=== PATIENT | female | born 1970 | race African-American/Black ===

== ENCOUNTER 2019-11-17 00:13 | Emergency (ER) | payer MEDICAID ==
[~2019-11-17] VITALS: Ht 172.7 cm; Wt 68.0 kg
[2019-11-17 02:43] VITALS: BP 149/91
== END 2019-11-17 03:02 | disposition home or self-care (01) ==
LOC: ER 00:19
DX: S96.911A Strain of unspecified muscle and tendon at ankle and foot level, right foot, initial encounter (principal); M72.2 Plantar fascial fibromatosis; Z90.710 Acquired absence of both cervix and uterus; X50.9XXA Other and unspecified overexertion or strenuous movements or postures, initial encounter; Y93.01 Activity, walking, marching and hiking; Y92.89 Other specified places as the place of occurrence of the external cause; Y99.8 Other external cause status
CPT/HCPCS: 29515; 73610; 73630

== ENCOUNTER 2020-04-12 10:20 | Emergency (ER) | payer MEDICAID ==
[~2020-04-12] VITALS: Ht 172.7 cm; Wt 70.8 kg
[2020-04-12] MEDS ORDERED: ACETAMINOPHEN/CODEINE#3 (300/30mg) TAB PO ONE (11:15)
[2020-04-12 11:45] VITALS: BP 142/100
== END 2020-04-12 12:15 | disposition home or self-care (01) ==
LOC: ER 10:20
DX: S92.512A Displaced fracture of proximal phalanx of left lesser toe(s), initial encounter for closed fracture (principal); Z90.710 Acquired absence of both cervix and uterus; Z90.89 Acquired absence of other organs; W20.8XXA Other cause of strike by thrown, projected or falling object, initial encounter; Y93.89 Activity, other specified; Y92.89 Other specified places as the place of occurrence of the external cause; Y99.8 Other external cause status
CPT/HCPCS: 29515; 73630

== ENCOUNTER 2022-04-15 06:30 | Emergency (ER) | payer MEDICAID ==
[~2022-04-15] VITALS: Ht 172.7 cm; Wt 70.8 kg
[2022-04-15 07:27] VITALS: BP 168/100
== END 2022-04-15 07:48 | disposition home or self-care (01) ==
LOC: ER 06:30
DX: S63.612A Unspecified sprain of right middle finger, initial encounter (principal); I10 Essential (primary) hypertension; Z88.2 Allergy status to sulfonamides; Z90.710 Acquired absence of both cervix and uterus; X50.1XXA Overexertion from prolonged static or awkward postures, initial encounter; Y93.89 Activity, other specified; Y92.89 Other specified places as the place of occurrence of the external cause; Y99.8 Other external cause status
CPT/HCPCS: 29130; 73140

== ENCOUNTER 2023-03-06 20:34 | Emergency (ER) | payer MEDICAID, OTHER ==
[~2023-03-06] VITALS: Ht 172.7 cm; Wt 76.5 kg
[2023-03-07] MEDS ORDERED: IBUP800T27 PO (00:07)
[2023-03-07 00:10] VITALS: BP 132/82
== END 2023-03-07 00:28 | disposition home or self-care (01) ==
LOC: ER 20:34
DX: S63.501A Unspecified sprain of right wrist, initial encounter (principal); S90.01XA Contusion of right ankle, initial encounter; I10 Essential (primary) hypertension; Z88.2 Allergy status to sulfonamides; Z90.710 Acquired absence of both cervix and uterus; Z90.89 Acquired absence of other organs; V49.9XXA Car occupant (driver) (passenger) injured in unspecified traffic accident, initial encounter; Y93.89 Activity, other specified; Y92.488 Other paved roadways as the place of occurrence of the external cause; Y99.8 Other external cause status
CPT/HCPCS: 73100; 73600

== ENCOUNTER 2023-03-17 00:33 | Inpatient (IN) | payer MEDICAID, OTHER ==
[~2023-03-17] VITALS: Ht 172.7 cm; Wt 77.5 kg
[~2023-03-17 00:33] MED LIST: IBUP800T27 PO
[2023-03-17 01:07] LABS: Urine Bacteria FEW /hpf (None Seen); Urine Blood Negative /uL (Negative); Urine Specific Gravity 1.001 (1.001-1.035); Urine WBC 4 /hpf (0 - 5)
[2023-03-17 01:32] LABS: Basophils # (auto) 0.1 10 ^3/uL (0-0.2); Eosinophils # (auto) 0.4 10 ^3/uL (0-0.8); Hematocrit 49.1 % (36.0-46.0); Hemoglobin 16.7 g/dL (12.2-16.2); Lymphocytes % (auto) 28.2 % (10.0-50.0); Mean Corpuscular Hemoglobin 29.5 pg (28.0-32.0); Mean Corpuscular Hgb Conc. 34.1 g/dL (32.0-36.0); Mean Corpuscular Volume 86.7 fL (80.0-100.0); Monocytes # (auto) 0.4 10 ^3/uL (0-1.3); Monocytes % (auto) 6.2 % (0.0-12.0); Neutrophils # (auto) 4.1 10 ^3/uL (1.6-8.6); Neutrophils % (auto) 58.6 % (37.0-80.0); Nucleated Red Blood Cells % 0.1 %; Red Blood Cells 5.66 10^6/uL (4.0-5.20); Red Cell Distribution Width 13.2 % (11.8-14.3)
[2023-03-17 01:56] LABS: Albumin 3.8 g/dL (3.4-5.0); BUN/Creatinine Ratio 11.8 (10.0-20.0); Calcium 9.3 mg/dL (8.5-10.1); Potassium 3.6 mmol/L (3.5-5.1)
[2023-03-17 01:59] LABS: Bilirubin, Total 0.3 mg/dL (0.2-1.0); Total Protein 8.1 g/dL (6.4-8.2)
[2023-03-17] MEDS ORDERED: ASPirin 81 mg TAB PO ONE (03:00)
[2023-03-17] MEDS ORDERED: cefTRIAXone 1GM/50ML D5W 50 ML IV ONE (03:45)
[2023-03-17] MEDS ORDERED: ACETAMINOPHEN 325 MG TAB PO PRN (04:00)
[2023-03-17] MEDS ORDERED: ONDANSETRON HCL 4 MG/2 ML VIAL IV PRN (04:00)
[2023-03-17] MEDS ORDERED: HYDROcodone-ACET 5/325MG TAB PO PRN (04:00)
[2023-03-17] MEDS ORDERED: DOCUSATE SOD 100 MG CAP PO PRN (04:00)
[2023-03-17] MEDS ORDERED: NITROGLYCERIN 0.4 MG SL TAB SL PRN (04:00)
[2023-03-17] MEDS ORDERED: MORPHINE SULFATE INJ 2 MG/ml SYRG IV PRN ×2 (04:00)
[2023-03-17] MEDS ORDERED: hydrALAZINE HCL 20 MG/ML VL IV SCH (06:00)
[2023-03-17] MEDS: SODIUM CHLOR 0.9% PF (SALINE LOCK) 10ML VIAL/SYR IV SCH ×3 (06:01→21:49)
[2023-03-17] MEDS ORDERED: hydrALAZINE HCL 20 MG/ML VL IV PRN (07:00)
[2023-03-17] MEDS: cefTRIAXone 1GM/50ML D5W 50 ML IV SCH (09:00)
[2023-03-17 10:38] VITALS: BP 146/93
[2023-03-17] MEDS ORDERED: LOSA-69 PO (10:53)
[2023-03-17] MEDS: ASPirin 81 mg TAB PO SCH (11:13)
[2023-03-17] MEDS: FAMOTIDINE (10MG/ML) 2ML VL IV SCH (11:14)
[2023-03-17] MEDS ORDERED: ENOXAPARIN SOD 40 MG/0.4 ML SYRINGE SC ONE (11:30)
[2023-03-17] MEDS ORDERED: LOSARTAN POTASSIUM 50 MG TAB PO ONE (11:30)
[2023-03-17 13:00] VITALS: BP 140/84
[2023-03-17 16:44] VITALS: BP_SYST 168; BP_SYST 96; BP_DIAS 44; BP_DIAS 97
[2023-03-17 22:00] VITALS: BP 132/89
[2023-03-17] MEDS ORDERED: ATORVASTATIN 20 MG TAB PO SCH (22:00)
[2023-03-18 05:00] VITALS: BP 130/94
[2023-03-18] MEDS: SODIUM CHLOR 0.9% PF (SALINE LOCK) 10ML VIAL/SYR IV SCH (05:42)
[2023-03-18 06:05] LABS: Basophils # (auto) 0 10 ^3/uL (0-0.2); Basophils % (auto) 0.5 % (0.0-2.0); Eosinophils # (auto) 0.2 10 ^3/uL (0-0.8); Eosinophils % (auto) 3.8 % (0.0-7.0); Hemoglobin 15.1 g/dL (12.2-16.2); Lymphocytes # (auto) 1.7 10 ^3/uL (0.4-5.4); Lymphocytes % (auto) 27.5 % (10.0-50.0); Mean Corpuscular Hemoglobin 29.9 pg (28.0-32.0); Mean Corpuscular Hgb Conc. 34.4 g/dL (32.0-36.0); Mean Corpuscular Volume 86.8 fL (80.0-100.0); Monocytes # (auto) 0.4 10 ^3/uL (0-1.3); Monocytes % (auto) 6.3 % (0.0-12.0); Neutrophils # (auto) 3.8 10 ^3/uL (1.6-8.6); Neutrophils % (auto) 61.9 % (37.0-80.0); Nucleated Red Blood Cells % 0.2 %; Red Blood Cells 5.06 10^6/uL (4.0-5.20); Red Cell Distribution Width 13.3 % (11.8-14.3); White Blood Cell 6.1 10^3/uL (4.4-10.8)
[2023-03-18 06:15] LABS: Albumin 3.3 g/dL (3.4-5.0); Calcium 8.8 mg/dL (8.5-10.1); Potassium 3.8 mmol/L (3.5-5.1)
[2023-03-18 06:21] LABS: BUN/Creatinine Ratio 12.8 (10.0-20.0); Bilirubin, Total 0.6 mg/dL (0.2-1.0); Total Protein 6.7 g/dL (6.4-8.2)
[2023-03-18] MEDS: cefTRIAXone 1GM/50ML D5W 50 ML IV SCH (08:37)
[2023-03-18 09:00] VITALS: BP 152/89
[2023-03-18] MEDS: FAMOTIDINE (10MG/ML) 2ML VL IV SCH (09:44)
[2023-03-18] MEDS: ASPirin 81 mg TAB PO SCH (09:44)
[2023-03-18] MEDS ORDERED: LOSARTAN POTASSIUM 50 MG TAB PO SCH (10:00)
[2023-03-18] MEDS ORDERED: ENOXAPARIN SOD 40 MG/0.4 ML SYRINGE SC SCH (10:00)
[2023-03-18] MEDS ORDERED: CAR3125T OR (10:38)
[2023-03-18] MEDS ORDERED: CIPR-273 PO (10:38)
[2023-03-18 11:39] VITALS: BP 152/89
== END 2023-03-18 12:12 | disposition home or self-care (01) | DRG 207 ==
LOC: ER 00:33 → TELE 03:57 → TELE-CENTR 10:09
PROVIDERS: ADMIT Nurse Practitioner Family; ATTEND Internal Medicine Geriatric Medicine
DX: R00.2 Palpitations (principal); I21.A1 Myocardial infarction type 2; I50.32 Chronic diastolic (congestive) heart failure; I11.0 Hypertensive heart disease with heart failure; F41.9 Anxiety disorder, unspecified; N39.0 Urinary tract infection, site not specified; I49.3 Ventricular premature depolarization; I49.8 Other specified cardiac arrhythmias; Z79.899 Other long term (current) drug therapy; R00.0 Tachycardia, unspecified; Z82.49 Family history of ischemic heart disease and other diseases of the circulatory system; Z88.2 Allergy status to sulfonamides; Z90.710 Acquired absence of both cervix and uterus; Z88.6 Allergy status to analgesic agent
CPT/HCPCS: 36415; 71046; 80053; 81001; 83880; 84484; 85025; 87086; 93005; 93306; 96365; G0378; J0696; J3490

== ENCOUNTER 2025-05-16 07:02 | Emergency (ER) | payer MEDICAID, OTHER ==
[~2025-05-16] VITALS: Ht 172.7 cm; Wt 78.6 kg
[~2025-05-16 07:02] MED LIST changes: +CARV-214 OR; +CIPR-273 PO; +IBUP-1456 PO; -IBUP800T27 PO; +LOSA-534 PO
[2025-05-16 07:19] VITALS: BP 166/97; PULSE 72; RESP 16; TEMP 98.3; O2SAT 100
--- NOTE | 2025-05-16 07:22 | ED.PDOC ---
Back pain HPI HPI Comments A 54 YEAR-OLD FEMALE PRESENTS TO THE ED WITH A CHIEF COMPLAINT LOWER BACK PAIN FOR X4 DAYS. PATIENT REPORTS THAT SHE WORKS OUT FREQUENTLY, WITH MOVEMENT AND ACTIVITY INCREASING PAIN. PATIENT HAS NO FURTHER COMPLAINTS AT THIS TIME AND OTHERWISE DENIES DYSURIA, HEMATURIA, BLOODY STOOL, FEVER, CHILLS, OR ACHES. PATIENT IS ALERT, ORIENTED X 4, AND HAS STEADY GAIT. Chief Complaint: LOWER BACK PAIN Time Seen by MD: 07:21 Primary Care Provider: SANDRA Wilcox Reviewed Notes: Nurses Notes, Medications, Allergies Allergies: Coded Allergies: Sulfa Antibiotics (Verified Allergy, Severe, HIVES, 04/12/20) Uncoded Allergies: SULFA (Allergy, Severe, RASH, 08/06/16) Home Meds Active Scripts Carvedilol (COREG) 3.125 Mg Tab, 3.125 MG OR BID for 30 Days, #60 TAB Prov:RICHARD RAMIREZ MD 03/18/23 Ciprofloxacin Hcl (Cipro) 250 Mg Tab, 250 MG PO BID for 7 Days, #14 TAB Prov:RICHARD RAMIREZ MD 03/18/23 Ibuprofen (Ibuprofen) 800 Mg Tab, 1 TAB PO TID PRN, #30 TAB 0 Refills Prov:NAA MELENDEZ 03/07/23 Reported Medications Losartan Potassium (Losartan Potassium) 50 Mg Tab, 1 TAB PO DAILY 03/17/23 Information Source: Patient Mode of Arrival: Ambulatory Timing: Days (4) Duration: Since onset Location of Back pain: (R) Lower back, (L) Lower back Severity: Moderate Prehospital treatment: None Onset: Spontaneous, Other (GYM ) History of: Other Modifying Factors: Movement, Walking; No Twisting Associated signs and symptoms: Other (LOWER BACK PAIN ) Past Medical History PAST MEDICAL HISTORY: Anemia, Anxiety, HTN Surgical History: Hysterectomy, Tonsillectomy 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 History Family History Family History: Unknown Social History Smoker: Non-Smoker Alcohol: Occasionally Drugs: Denies Drug Use Lives In: Home Constitutional: denies: chills, diaphoresis, fatigue, fever, malaise, sweats, weakness, others EENTM: denies: blurred vision, double vision, ear bleeding, ear discharge, ear drainage, ear pain, ear ringing, eye pain, eye redness, hearing loss, mouth pain, mouth swelling, nasal discharge, nose bleeding, nose congestion, nose pain, photophobia, tearing, throat pain, throat swelling, voice changes, others Respiratory: denies: cough, hemoptysis, orthopnea, SOB at rest, shortness of breath, SOB with excertion, stridor, wheezing, others Cardiovascular: denies: chest pain, dizzy spells, diaphoresis, Dyspnea on exertion, edema, irregular heart beat, left arm pain, lightheadedness, palpitations, PND, syncope, others Gastrointestinal: denies: abdomen distended, abdominal pain, blood streaked bowels, constipated, diarrhea, dysphagia, difficulty swallowing, hematemesis, melena, nausea, poor appetite, poor fluid intake, rectal bleeding, rectal pain, vomiting, others Genitourinary: denies: abnormal vagina bleeding, burning, dyspareunia, dysuria, flank pain, frequency, hematuria, incontinence, pain, , vagina discharge, urgency, others Neurological: denies: dizziness, fainting, headache, left sided numbness, left sided weakness, numbness, paresthesia, pre-existing deficit, right sided numbness, right sided weakness, seizure, speech problems, tingling, tremors, weakness, others Musculoskeletal: reports: back pain (LOWER ), muscle pain; denies: gout, joint pain, joint swelling, muscle stiffness, neck pain, others Integumetry: denies: bruises, change in color, change in hair/nails, dryness, laceration, lesions, lumps, rash, wounds, others Allergic/Immunocompromised: denies: Difficulty Healing, Frequent Infections, Hives, Itching, others Hematologic/Lymphatic: denies: anemia, blood clots, easy bleeding, easy bruising, swollen glands, others Endocrine: denies: excessive hunger, excessive sweating, excessive thirst, excessive urination, flushing, intolerance to cold, intolerance to heat, unexplained weight gain, unexplained weight loss, others Psychiatric: denies: anxiety, bipolar disorder, depression, hopeless, panic disorder, schizophrenia, sleepless, suicidal, others All Other Systems: Reviewed and Negative Physical Exam General Appearance: No Apparent Distress, Normal HEENT: Normal ENT Inspection, PERRL/EOMI, Pharynx Normal, TMs Normal Neck: Full Range of Motion, Non-Tender, Normal, Normal Inspection Respiratory: Chest Non-Tender, Lungs Clear, No Accessory Muscle Use, No Respiratory Distress, Normal Breath Sounds Cardiovascular: No Edema, No JVD, No Murmur, No Gallop, Normal Peripheral Pulses, Regular Rate/Rhythm Breast Exam: Deferred Gastrointestinal: No Organomegaly, Non Tender, No Pulsatile Mass, Normal Bowel Sounds, Soft Genitalia: Deferred Pelvic: Deferred Rectal: Deferred Extremities: No calf tenderness, Normal capillary refill, Normal inspection, Normal range of motion, Non-tender, No pedal edema Musculoskeletal : Location: Bilateral Extremity Location: Back Apperance: Tenderness: Moderate (TENDERNESS AND MUSCLE SPASM ON LOWER BACK, NO BONY TENDERNESS, SWELLING AND DEFORMITY. ) Neurologic: Alert, process project engineer II-XII nml as Tested, No Motor Deficits, Normal Affect, Normal Mood, No Sensory Deficits Cerebellar Function: Normal Reflexes: Normal Skin: Dry, Normal Color, Warm Peripheral Pulses: 2+ carotid (R), 2+ carotid (L) Lymphatic: No Adenopathy Was a procedure done? Was a procedure done?: No Back Pain Differential Dx Differential Diagnosis: DJD, Fracture, Musculoskeletal Pain, Strain X-Ray, Labs, Meds, VS Vital Signs Date Time Temp Pulse Resp B/P (MAP) Pulse Ox O2 Delivery O2 Flow Rate FiO2 05/16/25 07:19 98.3 72 16 166/97 (120) 100 98.3 INDICATION: PAIN, NO INJURY TECHNIQUE: 2 views of the lumbar spine were obtained. COMPARISON: None FINDINGS: There are no acute fractures or subluxations. IMPRESSION: No acute fracture or subluxation. X-Ray, Labs, Meds, VS Comment EXTERNAL MEDICAL RECORDS: NONE INDEPENDENT HISTORIANS: NONE SOCIAL DETERMINANTS OF HEALTH: NONE LABS ORDERED: NONE REVIEWED AND INTERPRETED RESULTS: NONE IMAGING ORDERED: LUMBAR SPINE XRAY TREATMENTS ORDERED: TORADOL INJECTION PATIENT'S CASE AND RESULTS HAVE BEEN DISCUSSED WITH THE ED ATTENDING PHYSICIAN AND THEY AGREE WITH MY PLAN OF CARE. RX: ROBAXIN 750MG I HAVE DISCUSSED IMAGING AND LAB RESULTS WITH THE PATIENT AND HAVE INSTRUCTED THE PATIENT TO FOLLOW UP WITH THEIR PCP IN 1-2 DAYS. THE PATIENT FULLY UNDERSTANDS THEIR RESULTS AND ARE AWARE THEY NEED TO FOLLOW UP WITH THEIR PCP FOR FURTHER EVALUATION IF THEIR SYMPTOMS PERSIST. Images Reviewed?: Images reviewed and evaluated by me Time of 1ST Reevaluation: 07:55 Reevaluation 1ST: Improved Patient Education/Counseling: Diagnosis, Treatment, Need For Follow Up Family Education/Counseling: No Family Present Medical Screening: No EMC Exist At This Time SEPSIS Sepsis Screen Physician Orders Lumbar Spine 3 View (05/16/25 07:20) Vital Signs Date Time Temp Pulse Resp B/P (MAP) Pulse Ox O2 Delivery O2 Flow Rate FiO2 05/16/25 07:19 98.3 72 16 166/97 (120) 100 98.3 Departure 1 Departure Time of Disposition: 08:34 Impression: Primary Impression: Low back strain Qualified Codes: S39.012A - Strain of muscle, fascia and tendon of lower back, initial encounter Disposition: HOME / SELF CARE / HOMELESS Condition: Stable Additional Instructions: FOLLOW-UP WITH PCP IN 1 TO 2 DAYS. TAKE MEDICATIONS PRESCRIBED. RETURN TO ED FOR ANY NEW OR WORSENING SYMPTOMS. e-Prescriptions Methocarbamol (Methocarbamol) 750 Mg Tab 750 MG PO BID, #30 TAB Prov: YOON HOLLIDAY 05/16/25 Discharged With: Self Critical Care Note Critical Care Time?: No Stability Stability form required: No Heart Score Heart Score: Heart Score Response (Comments) Value History N/A 0 EKG N/A 0 Age N/A 0 Risk Factors N/A 0 Troponin N/A 0 Total 0 I personally scribed for CHITO HOLLIDAYA PA ([email or web address]) on 05/16/25 at 07:22. Electronically submitted by Keely Lemon ([employer] I personally scribed for CHITO HOLLIDAYA PA ([email or web address]) on 05/16/25 at 07:35. Electronically submitted by Keely Lemon ([employer] I personally scribed for MGDAVI PierreXIA PA ([email or web address]) on 05/16/25 at 07:36. Electronically submitted by Keely Lemon ([employer] I personally scribed for MGCHITO PierreA PA ([email or web address]) on 05/16/25 at 07:37. Electronically submitted by Keely Lemon ([employer] I personally scribed for CHITO HOLLIDAYA PA ([email or web address]) on 05/16/25 at 08:12. Electronically submitted by Keely Lemon ([employer] YOON HOLLIDAY May 16, 2025 07:22
[2025-05-16] MEDS ORDERED: KETOROLAC TROMETH 60MG/2ML VIAL IM ONE (07:30)
--- NOTE | 2025-05-16 07:53 | DVH ---
INDICATION: PAIN, NO INJURY TECHNIQUE: 2 views of the lumbar spine were obtained. COMPARISON: None FINDINGS: There are no acute fractures or subluxations. IMPRESSION: No acute fracture or subluxation.
[2025-05-16] MEDS ORDERED: METH-1182 PO (08:32)
== END 2025-05-17 08:36 | disposition home or self-care (01) ==
LOC: ER 07:02
DX: S39.012A Strain of muscle, fascia and tendon of lower back, initial encounter (principal); F10.90 Alcohol use, unspecified, uncomplicated; I10 Essential (primary) hypertension; F41.9 Anxiety disorder, unspecified; Z90.710 Acquired absence of both cervix and uterus; Z88.2 Allergy status to sulfonamides; Z86.2 Personal history of diseases of the blood and blood-forming organs and certain disorders involving the immune mechanism; Z79.899 Other long term (current) drug therapy; X58.XXXA Exposure to other specified factors, initial encounter; Y93.89 Activity, other specified; Y92.89 Other specified places as the place of occurrence of the external cause; Y99.8 Other external cause status; Y90.9 Presence of alcohol in blood, level not specified
CPT/HCPCS: 72100

== ENCOUNTER 2025-08-30 17:05 | Emergency (ER) | payer MEDICAID ==
[~2025-08-30] VITALS: Ht 175.3 cm; Wt 77.8 kg
[~2025-08-30 17:05] MED LIST changes: +METH-1182 PO
[2025-08-30 17:06] VITALS: BP 169/104; PULSE 68; RESP 15; TEMP 97; O2SAT 99
--- NOTE | 2025-08-30 19:09 | ED.PDOC ---
History of Present Illness HPI Comments 55 y/o F, with a Hx of UTI's, presents with c/c of left, lower back pain. Patient reports sudden onset of pain, tonight. She comments suspicion on having a UTI, again, and moving heavy furniture 2x weeks ago. Denies any recent injuries. Denies any weakness, numbness, tingling, urinary problems, or further associated symptoms. Chief Complaint: Back Pain Time Seen by MD: 18:45 Primary Care Provider: ОЛЕГ Reviewed Notes: Nurses Notes, Medications, Allergies Allergies: Coded Allergies: Sulfa Antibiotics (Verified Allergy, Severe, HIVES, 04/12/20) Uncoded Allergies: SULFA (Allergy, Severe, RASH, 08/06/16) Home Meds Active Scripts Cefdinir (Cefdinir) 300 Mg Cap, 1 CAP PO BID, #14 CAP Prov:LANE BHANDARI MD 08/30/25 Methocarbamol (Methocarbamol) 750 Mg Tab, 750 MG PO BID, #30 TAB Prov:YOON HOLLIDAY 05/16/25 Carvedilol (COREG) 3.125 Mg Tab, 3.125 MG OR BID for 30 Days, #60 TAB Prov:RICHARD RAMIREZ MD 03/18/23 Ciprofloxacin Hcl (Cipro) 250 Mg Tab, 250 MG PO BID for 7 Days, #14 TAB Prov:RICHARD RAMIREZ MD 03/18/23 Ibuprofen (Ibuprofen) 800 Mg Tab, 1 TAB PO TID PRN, #30 TAB 0 Refills Prov:NAA MELENDEZ 03/07/23 Reported Medications Losartan Potassium (Losartan Potassium) 50 Mg Tab, 1 TAB PO DAILY 03/17/23 Information Source: Patient Mode of Arrival: Ambulatory Severity: Moderate Timing: Hours Duration: Since onset Prehospital treatment: None Past Medical History PAST MEDICAL HISTORY: Anemia, Anxiety, HTN, UTI'S Surgical History: Hysterectomy, Tonsillectomy 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 Family History Family History: Unknown Social History Smoker: Non-Smoker Alcohol: Occasionally Drugs: Denies Drug Use Lives In: Home All Other Systems: Reviewed and Negative (As per HPI) Physical Exam General Appearance: No Apparent Distress, Normal HEENT: Normal ENT Inspection, Pharynx Normal, TMs Normal Neck: Full Range of Motion, Non-Tender, Normal, Normal Inspection Respiratory: Chest Non-Tender, Lungs Clear, No Accessory Muscle Use, No Respiratory Distress, Normal Breath Sounds Cardiovascular: No Edema, No JVD, No Murmur, No Gallop, Normal Peripheral Pulses, Regular Rate/Rhythm Breast Exam: Deferred Gastrointestinal: No Organomegaly, Non Tender, No Pulsatile Mass, Normal Bowel Sounds, Soft Genitalia: Deferred Pelvic: Deferred Rectal: Deferred Extremities: No calf tenderness, Normal capillary refill, Normal inspection, Normal range of motion, Non-tender, No pedal edema Musculoskeletal : Location: Left Extremity Location: Back (lower lumbar area ) Apperance: Normal, Tenderness Neurologic: Alert, truck loader overhead crane II-XII nml as Tested, No Motor Deficits, Normal Affect, Normal Mood, No Sensory Deficits Cerebellar Function: Normal Reflexes: Normal Skin: Dry, Normal Color, Warm Lymphatic: No Adenopathy Was a procedure done? Was a procedure done?: No Differential Dx Considerations may include: UTI, musculoskeletal pain, PID, among others X-Ray, Labs, Meds, VS Vital Signs Date Time Temp Pulse Resp B/P (MAP) Pulse Ox O2 Delivery O2 Flow Rate FiO2 08/30/25 17:06 97.0 68 15 169/104 99 97.0 Lab Test 08/30/25 19:49 Range/Units Urine Color Colorless Yellow Urine Clarity Clear Clear Urine pH 7.0 5.0-9.0 Urine Specific [place] 1.008 1.001-1.035 Urine Protein Negative Negative Urine Ketones Negative Negative Urine Blood Negative Negative /uL Urine Nitrite Negative Negative Urine Bilirubin Negative Negative Urine Urobilinogen Normal Negative mg/dL Urine Leukocyte Esterase 1+ Negative /uL Urine RBC <1 0 - 4 /hpf Urine Microscopic WBC < 1 0-5 /HPF Urine Squamous Epithelial Cells Few <5 /hpf Urine Bacteria None seen None Seen /hpf Urine Glucose Normal Normal mg/dL Time of 1ST Reevaluation: 19:15 Reevaluation 1ST: Unchanged Patient Education/Counseling: Diagnosis, Treatment, Need For Follow Up Family Education/Counseling: No Family Present SEPSIS Sepsis Screen Date sepsis recognized/suspect: Aug 30, 2025 Time Sepsis recognized/suspect: 1707 Recent Procedure: No On Antibiotic Therapy: No Respiratory Rate >20: No Heart Rate >90: No Temp<36 C (96.8 F) or >38.3 C: No SBP <90 or MAP <65 mmHG: No New Acute Mental Status Change: No Is the patient on CPAP, BIPAP,: No Vital Signs Date Time Temp Pulse Resp B/P (MAP) Pulse Ox O2 Delivery O2 Flow Rate FiO2 08/30/25 17:06 97.0 68 15 169/104 99 97.0 Departure 1 Departure Time of Disposition: 21:00 Impression: Primary Impression: Low back pain Disposition: HOME / SELF CARE / HOMELESS Condition: Stable e-Prescriptions Cefdinir (Cefdinir) 300 Mg Cap 1 CAP PO BID, #14 CAP Prov: LANE BHANDARI MD 08/30/25 Discharged With: Self Critical Care Note Critical Care Time?: No Stability Stability form required: No Heart Score Heart Score: Heart Score Response (Comments) Value History N/A 0 EKG N/A 0 Age N/A 0 Risk Factors N/A 0 Troponin N/A 0 Total 0 I personally scribed for LANE BHANDARI MD ([email or web address]) on 08/30/25 at 19:09. Electronically submitted by Kirill Chaudhari ([email or web address]). LANE BHANDARI MD Aug 30, 2025 19:09
[2025-08-30 20:04] LABS: Urine Protein, UAD Negative (Negative)
[2025-08-30] MEDS ORDERED: CEFD300C2 PO (20:16)
== END 2025-08-30 22:03 | disposition home or self-care (01) ==
LOC: ER 17:05
DX: M54.50 Low back pain, unspecified (principal); I10 Essential (primary) hypertension; Z88.2 Allergy status to sulfonamides; Z90.710 Acquired absence of both cervix and uterus; Z87.440 Personal history of urinary (tract) infections
CPT/HCPCS: 81001